=== PATIENT | female | born 1995 | race Caucasian/White ===

== ENCOUNTER → 2017-02-12 | Day surgery (SDC) | payer OTHER ==
--- NOTE | 2017-02-12 22:13 | PRG ---
OB ED NOTE DATE OF SERVICE: 02/12/2017 TIME OF SERVICE: 1800 PRESENTING COMPLAINT: Blurred vision at 32 weeks gestation. HISTORY OF PRESENT ILLNESS: Ms. Khan is a 21-year-old 2, para 1 with an EDC of 04/09/2017 , placing her at 32 weeks' gestation, who is visiting town from [place], [place]. She reports that she has had an uncomplicated . She reports that she had some areas of revision that were bl urred for approximately 30 minutes to an hour and she called her [facility] and told her to come to the ospital and she reports that this has spontaneously resolved prior to presentation. She complains of mild midepigastric pain. OB AND [employer] HISTORY: x1 of an 8 pound 13 ounce male in 2007. Blood type is B positive, antibody negative. Last hematocrit was 35%. She had a normal 50 gram glucose tolerance test. The patient armando d enrollment into her antepartum care in November at 21 weeks' gestation. PAST MEDICAL HISTORY: Denies. PAST SURGICAL HISTORY: Denies. ALLERGIES: Denies. MEDICATIONS: vitamins. SOCIAL HISTORY: Denies tobacco, alcohol, or IV drug abuse. FAMILY HISTORY: Noncontributory. REVIEW OF SYSTEMS: Noncontributory. PHYSICAL EXAMINATION: GENERAL: White female in no acute distress. VITAL SIGNS: Blood pressure is 110/72, temperature 98.6, respirations 18, pulse 85. HEENT: Within normal limits. LUNGS: Clear to auscultation bilaterally. HEART: Regular rate and rhythm. ABDOMEN: Soft and nontender with a fundal height of 32 cm. FHTs are 140s. PELVIC: Vulvar and vaginal exam are deferred. EXTREMITIES: Trace edema, 1+ DTRs. LABORATORY STUDIES: Dip UA is negative. Prolonged monitoring reveals a baseline of 140s to 15 0s with positive accelerations, no decelerations, no contractions noted. Category 1 heart rate tracing. The patient was observed for over an hour and had serial blood pressures that were all 110 s-120s systolic over 60s-70s diastolic. IMPRESSION: Discomforts of . No evidence of preeclampsia. PLAN: Discharge home, keep scheduled followup with the patient's regular [facility] C[facility]TER in [place], [place] .
== END ==
LOC: L&D/OP 15:47
PROVIDERS: ATTEND Obstetrics & Gynecology
DX: O99.89 Other specified diseases and conditions complicating pregnancy, childbirth and the puerperium (principal); H53.8 Other visual disturbances; Z3A.32 32 weeks gestation of pregnancy; Z79.899 Other long term (current) drug therapy
CPT/HCPCS: 81003; 99283